=== PATIENT | female | born 1945 | race Caucasian/White ===

== ENCOUNTER → 2019-08-27 09:00 | Outpatient (BNVA) | payer MEDICARE, SELFPAY | PROVIDERS: Family Provider Family Medicine; PCP Family Medicine; Visit Provider Nurse Practitioner Family | DX: E78.5 Hyperlipidemia, unspecified (principal); I10 Essential (primary) hypertension; Z68.23 Body mass index [BMI] 23.0-23.9, adult | CPT/HCPCS: 80053; 80061 ==

== ENCOUNTER → 2019-10-22 11:51 | Outpatient (BNVA) | payer MEDICARE, SELFPAY | PROVIDERS: Family Provider Family Medicine; PCP Family Medicine; Visit Provider Nurse Practitioner Family | DX: R41.3 Other amnesia (principal); R41.82 Altered mental status, unspecified; F03.90 Unspecified dementia, unspecified severity, without behavioral disturbance, psychotic disturbance, mood disturbance, and anxiety; Z09 Encounter for follow-up examination after completed treatment for conditions other than malignant neoplasm; E55.9 Vitamin D deficiency, unspecified | CPT/HCPCS: 80053; 80307; 81003; 82306; 82607; 85025 ==

== ENCOUNTER → 2020-01-01 10:32 | Outpatient (BNVA) | payer MEDICARE, SELFPAY | PROVIDERS: Family Provider Family Medicine; PCP Family Medicine; Referring Provider Nurse Practitioner Family; Visit Provider Specialist | DX: G12.20 Motor neuron disease, unspecified (principal); F02.80 Dementia in other diseases classified elsewhere, unspecified severity, without behavioral disturbance, psychotic disturbance, mood disturbance, and anxiety; R41.3 Other amnesia | CPT/HCPCS: 96116; 99205 ==

== ENCOUNTER → 2020-03-09 09:16 | Outpatient (BNVA) | payer MEDICARE, SELFPAY | PROVIDERS: Family Provider Family Medicine; PCP Family Medicine; Visit Provider Nurse Practitioner Family | DX: E78.5 Hyperlipidemia, unspecified (principal) | CPT/HCPCS: 80053; 80061 ==

== ENCOUNTER → 2022-09-22 14:43 | Outpatient (BNVA) | payer MEDICARE, SELFPAY | PROVIDERS: Family Provider Family Medicine; PCP Nurse Practitioner Family; Visit Provider Family Medicine | DX: R30.0 Dysuria (principal); N39.0 Urinary tract infection, site not specified | CPT/HCPCS: 81000; 81003 ==

== ENCOUNTER → 2022-10-10 13:40 | Outpatient (BNVA) | payer MEDICARE, SELFPAY | PROVIDERS: Family Provider Family Medicine; PCP Family Medicine; Visit Provider Family Medicine | DX: I10 Essential (primary) hypertension (principal); R41.3 Other amnesia; F03.90 Unspecified dementia, unspecified severity, without behavioral disturbance, psychotic disturbance, mood disturbance, and anxiety; F33.1 Major depressive disorder, recurrent, moderate; F41.9 Anxiety disorder, unspecified; F51.01 Primary insomnia | CPT/HCPCS: 80053; 80061; 84439; 84443; 85025 ==

== ENCOUNTER 2023-01-22 19:19 | Emergency (ER) | payer MEDICARE, SELFPAY ==
[2023-01-22 19:37] VITALS: BP 175/78; PULSE 69; RESP 14; TEMP 36.4; O2SAT 98; BMI 24.1
== END 2023-01-22 20:33 | disposition left against medical advice (07) ==
PROVIDERS: Emergency Provider Family Medicine; PCP Family Medicine
DX: Z53.21 Procedure and treatment not carried out due to patient leaving prior to being seen by health care provider (principal)

== ENCOUNTER → 2023-01-25 13:22 | Outpatient (BNVA) | payer MEDICARE, SELFPAY | PROVIDERS: PCP Family Medicine; Visit Provider Psychiatry & Neurology Neurology | DX: F03.90 Unspecified dementia, unspecified severity, without behavioral disturbance, psychotic disturbance, mood disturbance, and anxiety (principal); F41.9 Anxiety disorder, unspecified; M21.331 Wrist drop, right wrist; M21.332 Wrist drop, left wrist; M54.50 Low back pain, unspecified; M40.209 Unspecified kyphosis, site unspecified; F41.8 Other specified anxiety disorders; G56.33 Lesion of radial nerve, bilateral upper limbs; I10 Essential (primary) hypertension | CPT/HCPCS: 99204 ==

== ENCOUNTER 2023-02-15 12:25 | Outpatient (CLI) | payer MEDICARE, SELFPAY ==
--- NOTE | 2023-02-15 | USCV_ITS ---
Ravi Marcela Age: 78 Gender: F : 1945 Exam Date: 02/15/2023 13:27 Ordering Phys: Mihai Hurst MD Technologist: Doreen Mondragon [place] [facility] [place]: AMNESIA Risk Factors: Previous Vascular Surgery: Right Brachial BP: / Left Brachial BP: / Right Left Velocity (cm/s) Spectral Plaque Velocity (cm/s) Spectral Plaque Syst/Diast Broadening Syst/Diast Broadening 110.00/22.60 Prox CCA 116.90/ 11.00 78.60/ 10.30 Mid CCA 73.00 / 11.70 114.40/15.80 Distal CCA 115.70/ 27.60 78.60/ 16.20 Prox ICA 103.90/ 25.00 74.30/ 10.20 Mid ICA 90.50 / 27.50 54.50/ 11.60 Distal ICA 87.70 / 22.80 143.80 ECA 140.80 0.69 ICA/CCA 0.89 Antegrade Vertebral Antegrade 43.90/ 6.30 cm/s 53.80/ 10.30 cm/s Bi Subclavian Tri 171.7 135.0 0 0 CONCLUSIONS Right ICA stenosis <50%. Moderate calcified atheromatous plaque right carotid bulb/ICA. Left ICA stenosis <50%. Moderate calcified atheromatous plaque left carotid bulb/ICA. Calcified plaque both CCA's Intimal thickening in the common carotid arteries and internal carotid arteries bilaterally. Normal antegrade Doppler flow noted in the right vertebral artery. Normal antegrade Doppler flow noted in the left vertebral artery. Osmani Ho MD (Electronically Signed) Final Date: 15 February 2023 16:37 S
--- NOTE | 2023-02-15 14:30 | MR_ITS ---
WS: [id number] MRI LUMBAR SPINE NONCONTRAST HISTORY: Chronic back pain. Abnormal gait. COMPARISON: None available. TECHNIQUE: Sagittal and axial multisequence imaging is submitted. Quality of this examination is compromised by motion artifact. Marked straightening of the normal lumbar lordosis. L4 retrolisthesis by 4.5 mm. Disc spaces are mode rately narrowed and desiccated. No lumbar spine fracture. Mild reactive marrow edema in the L4 and L5 endplates. Conus terminates normally at Conus tapers and terminates normally at L1. L1-L2: Mild facet arthritis. No stenosis. L2-L3: Mild annular disc bulging with moderate facet arthritis. Very mild subarticular recess narrowi ng. L3-L4: Mild annular disc bulging and ligamentum flavum hypertrophy. There is mild disc encroachment u christina the subarticular recesses. Mild disc contact on the traversing L4 nerve roots. Mild bilateral for aminal stenosis. L4-L5: Mild annular disc bulging with a central disc protrusion. Moderate ligamentum flavum and facet arthritis. Disc encroaches into the subarticular recesses and on the ventral thecal sac. Moderate ce ntral, bilateral subarticular recess and foraminal stenosis. L5-S1: Diffuse annular disc bulging with encroachment upon the ventral thecal sac. RIGHT foraminal di sc protrusion. Narrowing of the subarticular recesses and foramina. Moderate ligamentum flavum and fa cet arthritis. Mild central with subarticular recess stenosis. Moderate bilateral foraminal stenosis but greatest on the RIGHT. Disc contacts the L5 and S1 nerve roots, greatest on the RIGHT. Severe LEFT psoas muscle atrophy with fatty replacement. There is also atrophy of the RIGHT psoas mus rosalind without fatty replacement. IMPRESSION: 1. Straightening of the normal lumbar lordosis with 4.5 mm retrolisthesis of L4. 2. L4-5: Moderate central, bilateral subarticular recess and foraminal stenosis. 3. L5-S1: Moderate bilateral foraminal stenosis greatest on the RIGHT. Additional RIGHT foraminal dis c protrusion. Disc is contacting the L5 and S1 nerve roots greatest on the RIGHT. Additional mild pamela tral and bilateral subarticular recess stenosis. 4. Mild subarticular recess narrowing at L2-3 and L3-4 with mild bilateral foraminal stenosis at L3-4 . 5. LEFT psoas muscle atrophy with fatty replacement.
== END 2023-02-15 12:26 | disposition home or self-care (01) ==
PROVIDERS: PCP Family Medicine; Visit Provider Psychiatry & Neurology Neurology
DX: F03.94 Unspecified dementia, unspecified severity, with anxiety (principal); F41.9 Anxiety disorder, unspecified; I65.23 Occlusion and stenosis of bilateral carotid arteries; R41.3 Other amnesia; G89.29 Other chronic pain; R26.9 Unspecified abnormalities of gait and mobility; M40.56 Lordosis, unspecified, lumbar region; M43.16 Spondylolisthesis, lumbar region; M48.061 Spinal stenosis, lumbar region without neurogenic claudication; M62.58 Muscle wasting and atrophy, not elsewhere classified, other site
CPT/HCPCS: 72148; 93880

== ENCOUNTER 2023-08-16 08:43 | Emergency (ER) | payer MEDICARE, SELFPAY ==
[2023-08-16 08:49] VITALS: BP 144/89; PULSE 89; TEMP 36.8; O2SAT 98
--- NOTE | 2023-08-16 09:06 | CT_ITS ---
WS: [id number] CT CERVICAL TRAUMA TECHNIQUE: Noncontrast CT of the cervical spine with coronal and sagittal reformatted images. CLINICAL INFORMATION: trauma COMPARISON: None. DLP: 172.[address] scans at [facility] use at least one of these dose optimization techniques: automated e xposure control; mA and/or kV adjustment per patient size (includes targeted exams where dose is matc hed to clinical indication); or iterative reconstruction. FINDINGS: Straightening of the normal cervical lordosis. Moderate spondylitic changes. Disc space narrowing wor se at C4-C5 and C5-C6. Normal craniocervical junction. Normal C1-C2 articulation. Dens is normal in a ppearance. Normal occipital condyles. No high-grade spinal canal narrowing. Normal C1 ring. No eviden ce of acute fracture or dislocation. Normal prevertebral soft tissues. Mastoids air cells are well aerated. IMPRESSION: No evidence of acute fracture or dislocation.
--- NOTE | 2023-08-16 09:06 | CT_ITS ---
WS: [id number] CT HEAD TECHNIQUE: Noncontrast CT of the head obtained from the skullbase to the vertex. CLINICAL INFORMATION: trauma COMPARISON: MRI 2017 DLP: 1114.[address] scans at [facility] use at least one of these dose optimization techniques: automated e xposure control; mA and/or kV adjustment per patient size (includes targeted exams where dose is matc hed to clinical indication); or iterative reconstruction. FINDINGS: No evidence of intracranial hemorrhage or mass effect. Ventricular system and basal cisterns are kelly nt. Moderate small vessel changes with moderate parenchymal volume loss. Intracranial vascular calcif ication. No extra-axial fluid collections. No evidence of mass or mass effect. Intracranial vascular calcification. Prominent perivascular spaces in the basal ganglia. 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 Paranasal sinuses and mastoid air cells are well aerated. .Normal visualized soft tissues. IMPRESSION: 1. No evidence of intracranial hemorrhage or mass effect. 2. Moderate small vessel changes with moderate parenchymal volume loss. 3. No acute intracranial findings.
[2023-08-16] MEDS: tetanus-diphtheria tox (adult) 0.5 mL SDV IM (09:29)
--- NOTE | 2023-08-16 09:38 | W.ED.HEATRA ---
HPI - Head Injury General: Chief complaint: Head Injury Stated complaint: head lac Time Seen by Provider: 08/16/23 08:56 Source: patient Mode of arrival: ambulatory History of Present Illness: 78-year-old female who had a mechanical ground-level fall at home fell backwards hit the right occipital area of her head on the edge of a countertop had a fair amount of bleeding bleeding is stopped by time she arrives there is no loss conscious no vomiting or difficulty with vision. She is awake and alert. Attends emergency room with family member. MD Complaint: head injury Onset (ago): minute(s) Mechanism of Injury: fall Place: home Loss of Consciousness: no Location of injury: occipital (Right) Associated symptoms: Deny amnesia, confusion, nausea, neck pain, numbness, syncope, tingling, vertigo, visual changes, vomiting or weakness Review of Systems Const: Denies: fever(s) or chills Card: Denies: syncope Resp: Denies: dyspnea GI: Denies: nausea or vomiting : Denies: dysuria, urinary frequency or urinary urgency Musc: Denies: neck pain Skin/Breast: Denies: rash Neuro: Denies: vertigo or confusion PFSH ED PFSH: Medical History Dementia Hyperlipidemia Essential hypertension Enrolled in chronic care management Surgical History History of tonsillectomy Family History Father Hypertension Mother Cancer Other Diabetes Denies family history of CAD (coronary artery disease) Clotting disorder Dementia Hyperlipidemia Psychiatric illness Chronic kidney disease (CKD) Anesthesia complication Bleeding disorder Lung disease Stroke Social History Smoking and tobacco/nicotine status: never used tobacco/nicotine Quit status (tobacco/nicotine): has quit using Former quit date comment: age 57 Alcohol intake: current Alcohol intake frequency: few times a month Substance/Drug Use: never Caregiver/support person: Yes Lives independently: Yes Marital status: Current occupational status: retired Special jose needs: No Agree to transfusion: Yes Physical Exam Const: GENERAL APPEARANCE: cooperative and comfortable ORIENTATION/CONSCIOUSNESS: Yes awake, Yes oriented to person, Yes oriented to place and Yes oriented to time HENMT: COMMON NORMALS: normocephalic and hearing grossly normal bilaterally HEAD & SCALP: normocephalic OTHER: 1 cm scalp laceration in the right occipital region with no active bleeding single staple applied to good approximation cosmesis and hemostasis of wound Resp: COMMON NORMALS: normal respiratory effort, No retractions, No use of accessory muscles and clear to auscultation bilaterally AUSCULTATION: clear to auscultation bilaterally Cardio: COMMON NORMALS: regular rate, regular rhythm and No murmurs present (Cardio) RATE: regular rate RHYTHM: regular rhythm GI: COMMON NORMALS: Soft to palpation and No hepatosplenomegaly present AUSCULTATION: Yes normoactive bowel sounds PALPATION: Yes Soft to palpation, No Tenderness to palpation present (GI), No Guarding due to palpation present (GI) and Yes No hepatosplenomegaly present Extremity: COMMON NORMALS: normal to inspection, capillary refill normal, no clubbing, cyanosis or edema, no calf tenderness and no pedal edema Neuro: SENSORIUM/ORIENTATION: Yes oriented to person, Yes oriented to place and Yes oriented to time Skin: COMMON NORMALS: no rashes or lesions noted GENERAL SKIN EXAM: no rashes or lesions noted Course Vital Signs: Vital signs: Vital Signs Temperature 98.2 F 08/16/23 08:49 Pulse Rate 89 08/16/23 08:49 Blood Pressure 144/89 08/16/23 08:49 Pulse Oximetry 98 08/16/23 08:49 Oxygen Delivery Me thod Room Air 08/16/23 08:49 MDM - Head Injury Medcial Decision Making Laceration of scalp repaired with a single staple. Head CT and neck are normal no other injuries. Discharge patient home follow-up with primary care to remove dano in 7 to 10 days Differential Diagnosis Likely concussion without loss of consciousness and closed head injury Medical Records I reviewed the patient's medical records. Lab Data I reviewed the patient's lab results. All radiology interpretation(s) finalized by discharge Discharge Plan Discharge Patient Disposition: Home Clinical Impression: Fall, Laceration of head Condition: Stable Prescriptions: No Action butenafine 1 % cream 1 applic topical DAILY 28 Days Qty: 30 1RF escitalopram oxalate 10 mg tablet See Rx Instructions .ROUTE .COMPLEX Qty: 90 1RF Dose Instruction: TAKE 1 TABLET BY MOUTH DAILY Rx Instructions: TAKE 1 TABLET BY MOUTH DAILY quetiapine 50 mg tablet See Rx Instructions PO .COMPLEX Qty: 180 1RF Rx Instructions: orally; take 2 tablets in AM and 1 tablet in evening trazodone 50 mg tablet See Rx Instructions .ROUTE .COMPLEX Qty: 30 0RF Dose Instruction: TAKE 1 TABLET BY MOUTH EVERY DAY FOR INSOMNIA Rx Instructions: TAKE 1 TABLET BY MOUTH EVERY DAY FOR INSOMNIA lisinopril 20 mg tablet See Rx Instructions .ROUTE .COMPLEX Qty: 30 0RF Dose Instruction: TAKE 1 TABLET BY MOUTH DAILY Rx Instructions: TAKE 1 TABLET BY MOUTH DAILY Discharge Orders: Discharge ED (Routine); Ordered 08/16/23 Ordered By: Remi Balderrama Referrals: Jatinder Lind MD [Primary Care Provider] - Discharge Diet: Usual diet Discharge Activity: Increase activity as tolerated Patient Instructions: Opioid Safety, Pain Management Activity Restrictions/Additional Instructions: Thank you for choosing [facility] for your healthcare needs today. Please realize this is an emergency room and that we are providing you with a medical screening exam and this may not be complete and all inclusive of all the testing and or work up that you may need to determine your ailment or severity of your illness. It is very important that you follow up as instructed or that you return to the Emergency Department should you have concerns or if your condition changes or worsens in any way. You are seen today after a fall. Single dano placed in the scalp that should be removed in 7 days by your primary care doctor. CT of your head and imaging of your neck were negative for acute injury. Coding Level of Care Code ED Draw Fire Operator for James Menezes
== END 2023-08-16 10:15 | disposition home or self-care (01) ==
PROVIDERS: Emergency Provider Family Medicine; PCP Family Medicine
DX: S01.01XA Laceration without foreign body of scalp, initial encounter (principal); Z87.891 Personal history of nicotine dependence; F03.90 Unspecified dementia, unspecified severity, without behavioral disturbance, psychotic disturbance, mood disturbance, and anxiety; E78.5 Hyperlipidemia, unspecified; I10 Essential (primary) hypertension; W18.39XA Other fall on same level, initial encounter; Z23 Encounter for immunization
CPT/HCPCS: 12001; 70450; 72125; 90471; 90714; 99284